=== PATIENT | female | born 1990 | race Hispanic/Latino ===

== ENCOUNTER 2017-03-29 11:27 | Day surgery (SDC) | payer OTHER ==
--- NOTE | 2017-03-29 17:27 | NUR ---
TONG 1711: DR. VAZQUEZ CALLED AND NOTIFIED THAT PT IS NOT MEETING DISCHARGE CRITERIA. NOTIFIED THAT PT WOULD BE GOING TO MED/SURG AND MED/SURG NURSE WILL CALL BY 1999 IF NO CHANGES. 1725: PT TRANSFERRED TO MED/SURG. PT'S PARENTS ACCOMPANY MYSELF AND PT TO THE FLOOR. REPORT IS GIVEN TO RONALD BRONSON.
--- NOTE | 2017-03-31 11:31 | OR ---
[facility] [address] [place], [place] [address] Signed DATE OF SERVICE: 03/29/2017 PREOPERATIVE DIAGNOSIS: Left inferior periareolar solid breast mass. POSTOPERATIVE DIAGNOSIS: Left inferior periareolar solid breast mass. PROCEDURE: Left breast Biopsy Gun and core biopsy of breast mass. SURGEON: Mónica Hightower MD. ANESTHESIA: A 1% lidocaine. INDICATION: A 26-year-old woman, a patient of Dr. Payton and noted to have a solid mass on ultrasound of the left breast considered BI-RADS category 4. 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 I have recommended core biopsy. She is noted to be 12 weeks' . The risks of bleeding, infection, and so forth were reviewed with her. She understands wished to proceed. FINDINGS: The mass was not as easy to isolate as might be have been expected, but I do believe core biopsies of the lesion have been obtained. There was no complication. PROCEDURE: In the supine position, the left breast area and the infra-areolar area was gently palpated locating the mobile mass. The area was prepared with a chlorhexidine solution and draped sterilely. A 1% lidocaine with epinephrine was injected locally. A small stab incision was made with #11 blade directly over the area of the palpable mass. Isolating the mass with 2 fingers using a Biopty Gun core biopsy 14-gauge device, 5 biopsies were obtained in this area. The cord tissues were placed on Telfa and the preservative solution as well. A Band-Aid was applied. The patient tolerated the procedure well. MD LAURI Rollins/Randy /[id number] Electronically Signed By: MÓNICA HIGHTOWER MD 03/31/17 1131 PATIENT NAME: CHASIDY RODRIGUEZ OPERATIVE REPORT DATE OF : [birth year] PHYSICIAN: MÓNICA HIGHTOWER MD REPORT #: [id number] REPORT IS CONFIDENTIAL AND NOT TO BE RELEASED WITHOUT AUTHORIZATION [address] [address] Signed cc: Hasmukh Payton DO Electronically Signed By: MÓNICA HIGHTOWER MD 03/31/17 1131 PATIENT NAME: CHASIDY RODRIGUEZ OPERATIVE REPORT DATE OF : [birth year] PHYSICIAN: MÓNICA HIGHTOWER MD REPORT #: [id number] REPORT IS CONFIDENTIAL AND NOT TO BE RELEASED WITHOUT AUTHORIZATION
== END 2017-03-29 13:17 | disposition home or self-care (01) ==
LOC: DS 11:27 → OPS 11:27 → DS 13:00 → OPS 13:17
PROVIDERS: Surgery
PROC: 0HBU3ZX Excision of Left Breast, Percutaneous Approach, Diagnostic (ICD-10-PCS; principal; 2017-03-29 13:00)
DX: O92.29 Other disorders of breast associated with pregnancy and the puerperium (principal); O99.211 Obesity complicating pregnancy, first trimester; O99.281 Endocrine, nutritional and metabolic diseases complicating pregnancy, first trimester; E66.9 Obesity, unspecified; E03.9 Hypothyroidism, unspecified; Z3A.12 12 weeks gestation of pregnancy; Z98.890 Other specified postprocedural states; Z68.41 Body mass index [BMI] 40.0-44.9, adult

== ENCOUNTER 2017-10-09 00:08 | Inpatient (IN) | payer OTHER ==
[~2017-10-09] VITALS: Ht 167.6 cm; Wt 118.4 kg
[2017-10-09] MEDS ORDERED: ZANTAC150 MG PO (01:12)
[2017-10-09] MEDS ORDERED: PRENATAL VITAM1 EAC7 PO (01:13)
[2017-10-09] MEDS ORDERED: LEVOTHYROXINE25 MCG PO (01:13)
[2017-10-09] MEDS ORDERED: TYLENOL EXTRA500 MG PO (01:14)
[2017-10-09] MEDS ORDERED: MAGNESIUM200 MG PO (01:16)
--- NOTE | 2017-10-11 08:07 | PR ---
[facility] [address] [facility] [place], [place] [address] Signed PP Progress Notes Datetime Report Generated by CPN: 10/11/2017 08:07 SUBJECTIVE: [id number] Pain: Within normal limits Nausea/Vomiting: Denies Flatus: Yes Vital Signs: [id number] Vital Signs: Reviewed; Within Normal Limits EXAM: [id number] Cardiovascular: Normal Respiratory: Normal Abdomen/Uterus: Normal Lochia: Normal Vulva/Perineum: Not Done Breasts: Not Done CVA Tenderness: Normal Extremities: Normal Incision: Not Applicable Progress: Normal IMPRESSION/PLAN/PROCEDURES: [id number] Impression: Normal progression Plan: Discharge Procedures: None Progress Notes: Doing well, ready to go home. Signing Physician: Gustavo Tanner MD Copies: ~ *Electronically Signed* 10/11/17 0807 GUSTAVO TANNER MD PATIENT NAME: CHASIDY PEREZ PROGRESS NOTE DATE OF : [birth year] PHYSICIAN: GUSTAVO TANNER MD RPT #: [id number] REPORT IS CONFIDENTIAL AND NOT TO BE RELEASED WITHOUT AUTHORIZATION
== END 2017-10-11 12:45 | disposition home or self-care (01) | DRG 775 ==
LOC: FBC 00:08
PROVIDERS: ADMIT Obstetrics & Gynecology
PROC: 0KQM0ZZ Repair Perineum Muscle, Open Approach (ICD-10-PCS; principal; 2017-10-09)
PROC: 10E0XZZ Delivery of Products of Conception, External Approach (ICD-10-PCS; principal; 2017-10-09)
PROC: 10907ZC Drainage of Amniotic Fluid, Therapeutic from Products of Conception, Via Natural or Artificial Opening (ICD-10-PCS; principal; 2017-10-09)
DX: O99.214 Obesity complicating childbirth (principal); Z3A.40 40 weeks gestation of pregnancy; Z37.0 Single live birth; O70.1 Second degree perineal laceration during delivery; O99.284 Endocrine, nutritional and metabolic diseases complicating childbirth; E03.9 Hypothyroidism, unspecified; O99.344 Other mental disorders complicating childbirth; F32.9 Major depressive disorder, single episode, unspecified; O99.824 Streptococcus B carrier state complicating childbirth
CPT/HCPCS: J2540; J2590; J7120

== ENCOUNTER 2020-06-21 07:20 | Day surgery (SDC) | payer OTHER ==
[~2020-06-21] VITALS: Ht 167.6 cm; Wt 106.0 kg
[~2020-06-21 07:20] MED LIST: ADIPEX-P37.5 M1 PO; BENZTROPINE ME0.5 MG PO; BUPROPION XL300 MG PO; BUSPIRONE HCL10 MG PO; LEVOTHYROXINE25 MCG PO; MAGNESIUM200 MG PO; MULTIVITAMIN W1 EACH PO; NORCO 10-325 T1 EACH PO; ONDANSETRON ODT4 MG PO; PRENATAL VITAM1 EAC7 PO; TYLENOL EXTRA500 MG PO; ULTRAM50 MG PO; VENLAFAXINE H37.5 MG PO; VENTOLIN HFA18 GM; VITAMIN D50000 UNI1 PO; ZANTAC150 MG PO; ZYRTEC10 MG PO
--- NOTE | 2020-06-21 10:18 | NUR ---
06/21/20 1018 Sheets,Jannet 1000 PT ARRIVED TO PACU ON 6L VIA MASK, PT REACTIVE TO TECTILE STIMULI AND IS REORIENTED TO PACU. PT REPORTS SHE FEELS LIKE SHE CANT BREATHE OUT. PT RESP EVEN AND UNLABROED. EDUCATION GIVEN ON DEEP BREAHTING AND PROCEDURE. 1003 PT GRABBING AT O2 MASK AND O2 REMOVED. RN CONTINUES TO REASSURE PT O2 O2 SAT AND BREATHING. PT DENIES PAIN AND NAUSEA. MD AT BEDSIDE AND TALKING TO PT. 1012 PT REPORTS DRY MOUTH AND SMALL SIP OF WATER GIVEN. VSS. 1017 PT SLEEP AND SMALL AMOUNT OF SNORING NOTED.
--- NOTE | 2020-06-21 11:22 | OR ---
[facility] [address] [place], [place] [address] Signed DATE OF OPERATION: 06/21/2020 SURGEON: Naresh Miller MD PREOPERATIVE DIAGNOSIS: Chronic tonsillitis. POSTOPERATIVE DIAGNOSIS: Chronic tonsillitis. PROCEDURE: Tonsillectomy. ANESTHESIA: General orotracheal [employer] ASSOCIATE, Ryan. PREOPERATIVE HISTORY: Nazia is a 30-year-old young lady with chronic tonsillitis, multiple infections, strep throat, tonsillithiasis, chronic sore throat, taken to the operating for the above-mentioned procedures. OPERATIVE PROCEDURE AND FINDINGS: After informed consent, the patient was taken to the operating room, placed in supine position where general orotracheal anesthesia was induced. The patient and procedure were verified. The patient was repositioned. McIvor mouth gag placed into suspension. Headlight exam showed 2+ hypertrophic retracted cryptic, chronically infected appearing tonsils, left tonsil was grasped with a tenaculum, retracted medially and removed from its fossa with mucosal-sparing incision with Coblation. The field was dry after the procedure, same procedure on the right tonsil. Tonsils were sent to pathology. Mouth gag was released for several minutes. Reinspection showed no bleeding points. The pharynx was suctioned clear of blood secretions. Mouth gag was removed. The patient was awakened, extubated, transported to the recovery room in good condition. No complications. BLOOD LOSS: Minimal. SPECIMEN: To pathology. Electronically Signed By: NARESH MILLER MD 06/21/20 1122 PATIENT NAME: NAZIA PEREZ OPERATIVE REPORT DATE OF : [birth year] REPORT #: [id number] PHYSICIAN: NARESH MILLER MD PCP: MOSES NATH REPORT IS CONFIDENTIAL AND NOT TO BE RELEASED WITHOUT AUTHORIZATION [address] [address] Signed DRAINS: No drains. Naresh Miller MD /MODL /[id number] Copies: ~ Electronically Signed By: NARESH MILLER MD 06/21/20 1122 PATIENT NAME: NAZIA PEREZ OPERATIVE REPORT DATE OF : [birth year] REPORT #: [id number] PHYSICIAN: NARESH MILLER MD PCP: MOSES NATH REPORT IS CONFIDENTIAL AND NOT TO BE RELEASED WITHOUT AUTHORIZATION
--- NOTE | 2020-06-23 11:19 | PATH ---
[facility] [address] [place], [place] [address] Signed SPECIMEN(S): A LEFT TONSIL SPECIMEN(S): B RIGHT TONSIL SPECIMEN SOURCE: A. LEFT TONSIL B. RIGHT TONSIL CLINICAL HISTORY: Pre: Chronic strep tonsillitis. Post: Tonsillectomy. FINAL PATHOLOGIC DIAGNOSIS: A. Tonsil, left, tonsillectomy: - Reactive follicular lymphoid hyperplasia. B. Tonsil, right, tonsillectomy: - Reactive follicular lymphoid hyperplasia. NAL:cml:C2NR MICROSCOPIC EXAMINATION: Histologic sections of all submitted blocks are examined by light microscopy. These findings, together with the gross examination, support the pathologic diagnosis. GROSS DESCRIPTION: Two specimens are received in two containers, labeled "LS." A. The specimen, labeled "LS, left tonsil," is received in formalin and consists of a 3.0 x 2.1 x 1.1 cm palatine tonsil. The mucosal surface is pink-wilcox and smooth with areas of folds. Cut sections reveal a pink, homogeneous cut surface with the usual crypt-like architecture. The specimen is inked. [employer] sections are submitted in cassette (A1). B. The specimen, labeled "LS, right tonsil," is received in formalin and consists of a 3.2 x 2.0 x 1.2 cm palatine tonsil. The mucosal surface is pink-wilcox and smooth with areas of folds. Cut sections reveal a pink, homogeneous cut surface with the usual crypt-like architecture. [employer] sections are submitted in cassette (A1). JUNE (under the direct supervision of a pathologist) The Gross Description was prepared using a voice recognition system. The report was reviewed for accuracy; however, sound-alike word errors, addition and/or deletions may occur. If there is any question about this report, please contact Client Services. PATIENT NAME: CHASIDY PEREZ PATHOLOGY DATE OF : [birth year] REPORT #: [id number] PHYSICIAN: KIMBERLY ERWIN PCP: MOSES NATH REPORT IS CONFIDENTIAL AND NOT TO BE RELEASED WITHOUT AUTHORIZATION [facility] [address] [place], [place] [address] Signed PERFORMING LABORATORY: The technical component was performed by [employer] [facility], [address] [place] [id number] (Cloth Winder: Divina Perez MD; CLIA# [id number]). Professional interpretation was performed by [employer] [facility], [address] [address] (CLIA# [id number]). Diagnostician: Sofie Humphrey MD Pathologist Electronically Signed 06/23/2020 Copies: ~ PATIENT NAME: CHASIDY PEREZ PATHOLOGY DATE OF : [birth year] REPORT #: [id number] PHYSICIAN: KIMBERLY PATHOLOGY PCP: MOSES NATH REPORT IS CONFIDENTIAL AND NOT TO BE RELEASED WITHOUT AUTHORIZATION
== END 2020-06-21 12:30 | disposition home or self-care (01) ==
LOC: OPS 07:20 → DS 07:20 → OPS 08:30 → DS 08:30 → OPS 12:30
PROVIDERS: ATTEND Otolaryngology
PROC: 0C5PXZZ Destruction of Tonsils, External Approach (ICD-10-PCS; principal; 2020-06-21 08:30)
DX: J03.00 Acute streptococcal tonsillitis, unspecified (principal); J35.01 Chronic tonsillitis; Z79.899 Other long term (current) drug therapy
CPT/HCPCS: 00170; J1100; J2001; J2405; J2704; J3010; J7121